=== PATIENT | male | born 1930 | race Caucasian/White ===

== ENCOUNTER 2017-10-22 12:18 | Inpatient (IN) | payer MEDICARE, OTHER ==
[~2017-10-22] VITALS: Ht 182.9 cm; Wt 84.0 kg
[~2017-10-22 12:18] MED LIST: ALBU8.5H8 INH; ASPI-845 PO; ATOR40TA PO; CHOL10002 PO; FLUT16SP26 BOTHNARES; LEVO50TA66 PO; NITR0.4T SL; OMEG1CAP20 PO; SPIIN INH; UBID100C45 PO
[2017-10-22 13:03] LABS: BASOPHILS % (AUTO) 0.2 % (0-1); EOSINOPHILS # (AUTO) 0.1 X10'3 (0-0.9); HEMATOCRIT 41.7 % (42.0-52.0); HEMOGLOBIN 13.9 g/dl (14.0-17.9); LYMPHOCYTES # (AUTO) 0.6 X10'3 (1.1-4.8); LYMPHOCYTES % (AUTO) 3.9 % (21-51); MEAN CORPUSCULAR HEMOGLOBIN 30.3 PG (27.0-31.0); MEAN CORPUSCULAR HGB CONC 33.3 % (33.0-36.5); MEAN CORPUSCULAR VOLUME 91.1 FL (78-98); MEAN PLATELET VOLUME 7.8 FL (7.4-10.4); MONOCYTES # (AUTO) 0.8 X10'3 (0-0.9); MONOCYTES % (AUTO) 5.8 % (2-12); NEUTROPHILS % (AUTO) 89.1 % (42-75); PLATELET COUNT 174 X10'3 (140-440); RED BLOOD COUNT 4.57 X10'6 (4.70-6.10); RED CELL DISTRIBUTION WIDTH 13.8 % (11.5-14.5); WHITE BLOOD COUNT 14.6 X10'3 (4.5-11.0)
[2017-10-22 13:13] LABS: INR 1.1 INR; PARTIAL THROMBOPLASTIN TIME 27 SECONDS (22-32); PROTHROMBIN TIME 11.1 SECONDS (9.0-12.0)
[2017-10-22 13:17] LABS: ALANINE AMINOTRANSFERASE 20 U/L (12-78); ALBUMIN 3.4 G/DL (3.4-5.0); ALBUMIN/GLOBULIN RATIO 0.9 (1.1-1.5); ALKALINE PHOSPHATASE 73 IU/L (46-116); ANION GAP 10 (8-16); ASPARTATE AMINO TRANSFERASE 14 U/L (10-37); BILIRUBIN,TOTAL 0.6 MG/DL (0.1-1.0); BLOOD UREA NITROGEN 16 MG/DL (7-18); BUN/CREATININE RATIO 12.8 (5.4-32.0); CALCIUM 8.6 MG/DL (8.5-10.1); CHLORIDE 102 MMOL/L (99-107); CREATININE 1.25 MG/DL (0.60-1.10); GLUCOSE 117 MG/DL (70-104); MAGNESIUM 1.7 MG/DL (1.5-2.4); SODIUM 137 MMOL/L (135-145); TOTAL CARBON DIOXIDE 25.5 MMOL/L (24-32); TOTAL PROTEIN 7.3 G/DL (6.4-8.2); eGFR 55 ML/MIN
[2017-10-22] MEDS ORDERED: levoFLOXACIN-Levaquin 750MG/D5 150 ML IV ONE (13:50)
[2017-10-22] MEDS ORDERED: normal saline 1000ML IV soln IV ONE (13:50)
[2017-10-22 14:05] LABS: CLARITY,URINE CLEAR (Clear); COLOR,URINE YELLOW (Yellow); GLUCOSE, URINE NEGATIVE (Neg); KETONES,URINE NEGATIVE (Neg); LEUKOCYTE ESTERASE ,URINE NEGATIVE (Neg); NITRITES, URINE NEGATIVE (Neg); OCCULT BLOOD,URINE LARGE (Neg); PH,URINE 5.5 (4.8-8.0); PROTEIN,URINE NEGATIVE (Neg); UROBILINOGEN,URINE 0.2 E.U/dL (0.2-1.0)
[2017-10-22 14:06] LABS: UA COLLECTION TYPE CLN CATCH MIDSTREAM
[2017-10-22 14:31] LABS: MUCUS STRANDS FEW /LPF (Neg)
[2017-10-22 14:32] LABS: COARSE GRANULAR CAST 0-3 /LPF (NEGATIVE); SQUAMOUS EPITHELIAL CELL,UR FEW /LPF (FEW)
[2017-10-22 14:46] LABS: URIC ACID CRYSTALS 3+ /HPF (NEGATIVE)
[2017-10-22 14:50] LABS: BACTERIA,URINE FEW /HPF (Neg); WBC,URINE 0-4 /HPF (0-4)
[2017-10-22] MEDS ORDERED: magnesium hydroxide 30ml (MOM) UD suspension PO PRN (14:50)
[2017-10-22] MEDS ORDERED: HYDROcodone/acetaminophen 5mg/325mg tablet PO PRN (14:50)
[2017-10-22] MEDS ORDERED: morphine sulfate 8 MG/ML SYRINGE IV PRN (14:50)
[2017-10-22] MEDS ORDERED: ondansetron/PF 4mg/2ml inj IV PRN (14:50)
[2017-10-22] MEDS ORDERED: acetaminophen 325mg tablet PO PRN (14:50)
[2017-10-22] MEDS ORDERED: ipratropium/albuterol 3ml nebule NEB PRN (14:50)
[2017-10-22] MEDS ORDERED: mag hydrox/Alum hydrox/simeth 30ml oral suspension PO PRN (14:50)
[2017-10-22] MEDS: ipratropium/albuterol 3ml nebule NEB SCH ×2 (16:58→21:29)
[2017-10-22 20:00] VITALS: BP 114/55
[2017-10-22] MEDS: guaiFENesin ER 600mg tablet PO SCH (20:15)
[2017-10-23] VITALS: BP 100/61
[2017-10-23] MEDS: ipratropium/albuterol 3ml nebule NEB SCH ×4 (03:11→20:06)
[2017-10-23 06:31] LABS: BASOPHILS % (AUTO) 0 % (0-1); EOSINOPHILS # (AUTO) 0.2 X10'3 (0-0.9); EOSINOPHILS % (AUTO) 1.2 % (0-6); HEMATOCRIT 36.9 % (42.0-52.0); HEMOGLOBIN 12.4 g/dl (14.0-17.9); LYMPHOCYTES # (AUTO) 0.8 X10'3 (1.1-4.8); LYMPHOCYTES % (AUTO) 5.3 % (21-51); MEAN CORPUSCULAR HEMOGLOBIN 30.6 PG (27.0-31.0); MEAN CORPUSCULAR HGB CONC 33.7 % (33.0-36.5); MEAN CORPUSCULAR VOLUME 90.8 FL (78-98); MEAN PLATELET VOLUME 8.4 FL (7.4-10.4); MONOCYTES % (AUTO) 6.7 % (2-12); NEUTROPHILS # (AUTO) 12.6 X10'3 (1.8-7.7); NEUTROPHILS % (AUTO) 86.8 % (42-75); PLATELET COUNT 154 X10'3 (140-440); RED BLOOD COUNT 4.07 X10'6 (4.70-6.10); RED CELL DISTRIBUTION WIDTH 13.9 % (11.5-14.5); WHITE BLOOD COUNT 14.5 X10'3 (4.5-11.0)
[2017-10-23 06:38] LABS: ALBUMIN 2.5 G/DL (3.4-5.0); ANION GAP 9 (8-16); BLOOD UREA NITROGEN 16 MG/DL (7-18); BUN/CREATININE RATIO 12.6 (5.4-32.0); CALCIUM 7.9 MG/DL (8.5-10.1); CHLORIDE 105 MMOL/L (99-107); CREATININE 1.27 MG/DL (0.60-1.10); GLUCOSE 94 MG/DL (70-104); POTASSIUM 3.9 MMOL/L (3.5-5.1); SODIUM 138 MMOL/L (135-145); TOTAL CARBON DIOXIDE 24.5 MMOL/L (24-32); eGFR 54 ML/MIN
[2017-10-23 06:56] VITALS: BP 94/53
[2017-10-23] MEDS: OMEGA-3/DHA/EPA/FISH OIL 1 EACH CAPSULE.DR PO SCH (07:48)
[2017-10-23] MEDS: vitamin D (cholecalciferol) 1,000 unit tablet PO SCH (07:48)
[2017-10-23] MEDS: fluticasone nasal spray 16GM bottle NS SCH (07:48)
[2017-10-23] MEDS: guaiFENesin ER 600mg tablet PO SCH ×2 (07:48→19:58)
[2017-10-23] MEDS: levoTHYROXINE 25mcg tablet PO SCH (07:48)
[2017-10-23] MEDS: atorvastatin 10mg tablet PO SCH (07:48)
[2017-10-23] MEDS: aspirin 81mg tablet.DR PO SCH (07:48)
[2017-10-23] MEDS: enoxaparin 40mg/0.4ml syringe SQ SCH (07:49)
[2017-10-23] MEDS: nitroGLYCERIN 0.4mg SUBLingual tab SL SCH (07:49)
[2017-10-23] MEDS ORDERED: non-formulary drug (Ubidecarenone (Co Q-10) 100 MG) PO SCH (08:00)
[2017-10-23] MEDS ORDERED: azithromycin/NS 500mg/250ml 250 ML IV SCH (08:00)
[2017-10-23] MEDS ORDERED: FISH OIL PO SCH (08:00)
[2017-10-23] MEDS ORDERED: FATTY ACIDS PO SCH (08:00)
[2017-10-23] MEDS ORDERED: OMEGA PO SCH (08:00)
[2017-10-23] MEDS ORDERED: ATORVASTATIN CALCIUM 10 MG PO SCH (08:00)
[2017-10-23] MEDS ORDERED: [UNRECOGNIZED DRUG - OTHER] PO SCH (08:00)
[2017-10-23] MEDS ORDERED: non-formulary drug (Cholecalciferol (Vitamin D3) (Vitamin D3) 2 TAB) PO SCH (08:00)
[2017-10-23] MEDS ORDERED: non-formulary drug (Levothyroxine Sodium (Levoxyl) 1 TAB) PO SCH (08:00)
[2017-10-23] MEDS ORDERED: CefTRIAXone 1 gm/50ml D5W ADV 50 ML IV SCH (08:00)
[2017-10-23 12:08] VITALS: BP 104/48
[2017-10-23] MEDS ORDERED: diphenhydrAMINE 50 mg/ml inj IV PRN (12:30)
[2017-10-23] MEDS ORDERED: methylPREDNISolone sod succ 125mg/2ml vial IV ONE (12:30)
[2017-10-23] MEDS ORDERED: levoFLOXACIN-Levaquin 750MG/D5 150 ML IV SCH (14:00)
[2017-10-23] MEDS: budesonide 0.5mg/2ml UD nebule IH SCH ×2 (18:30→20:06)
[2017-10-23 19:00] VITALS: BP 103/54
[2017-10-24] VITALS: BP 98/66
[2017-10-24] MEDS: ipratropium/albuterol 3ml nebule NEB SCH ×2 (02:42→10:03)
[2017-10-24 06:10] LABS: BASOPHILS % (AUTO) 0 % (0-1); EOSINOPHILS # (AUTO) 0.1 X10'3 (0-0.9); EOSINOPHILS % (AUTO) 0.9 % (0-6); HEMATOCRIT 36.9 % (42.0-52.0); HEMOGLOBIN 12.2 g/dl (14.0-17.9); LYMPHOCYTES # (AUTO) 0.4 X10'3 (1.1-4.8); LYMPHOCYTES % (AUTO) 3.2 % (21-51); MEAN CORPUSCULAR HEMOGLOBIN 30.4 PG (27.0-31.0); MEAN CORPUSCULAR HGB CONC 33.1 % (33.0-36.5); MEAN CORPUSCULAR VOLUME 91.9 FL (78-98); MEAN PLATELET VOLUME 8.4 FL (7.4-10.4); MONOCYTES # (AUTO) 0.4 X10'3 (0-0.9); MONOCYTES % (AUTO) 3.3 % (2-12); NEUTROPHILS # (AUTO) 11.3 X10'3 (1.8-7.7); NEUTROPHILS % (AUTO) 92.6 % (42-75); PLATELET COUNT 167 X10'3 (140-440); RED BLOOD COUNT 4.02 X10'6 (4.70-6.10); RED CELL DISTRIBUTION WIDTH 14.1 % (11.5-14.5); WHITE BLOOD COUNT 12.2 X10'3 (4.5-11.0)
[2017-10-24 06:30] VITALS: BP 122/67
[2017-10-24 07:03] LABS: ALBUMIN 2.5 G/DL (3.4-5.0); ANION GAP 8 (8-16); BLOOD UREA NITROGEN 20 MG/DL (7-18); CHLORIDE 104 MMOL/L (99-107); CREATININE 1.25 MG/DL (0.60-1.10); GLUCOSE 142 MG/DL (70-104); POTASSIUM 3.7 MMOL/L (3.5-5.1); SODIUM 138 MMOL/L (135-145); TOTAL CARBON DIOXIDE 25.8 MMOL/L (24-32); eGFR 55 ML/MIN
[2017-10-24] MEDS: vitamin D (cholecalciferol) 1,000 unit tablet PO SCH (07:48)
[2017-10-24] MEDS: OMEGA-3/DHA/EPA/FISH OIL 1 EACH CAPSULE.DR PO SCH (07:48)
[2017-10-24] MEDS: guaiFENesin ER 600mg tablet PO SCH (07:49)
[2017-10-24] MEDS: nitroGLYCERIN 0.4mg SUBLingual tab SL SCH (07:49)
[2017-10-24] MEDS: atorvastatin 10mg tablet PO SCH (07:49)
[2017-10-24] MEDS: enoxaparin 40mg/0.4ml syringe SQ SCH (07:49)
[2017-10-24] MEDS: aspirin 81mg tablet.DR PO SCH (07:49)
[2017-10-24] MEDS: levoTHYROXINE 25mcg tablet PO SCH (07:49)
[2017-10-24] MEDS: fluticasone nasal spray 16GM bottle NS SCH (07:53)
[2017-10-24] MEDS: budesonide 0.5mg/2ml UD nebule IH SCH (08:00)
[2017-10-24 11:30] VITALS: BP 128/62
[2017-10-24] MEDS ORDERED: LACTOSE-FREE FOOD 237ML (BOOST) PO SCH (13:00)
[2017-10-24] MEDS ORDERED: LEVO500T2 PO (15:34)
[2017-10-25] MEDS ORDERED: levoFLOXACIN-Levaquin 750MG/D5 150 ML IV SCH (14:00)
== END 2017-10-24 16:13 | disposition home or self-care (01) | DRG 871 ==
LOC: ER 12:19 → ED HOLD 14:47 → SUR 3N 18:59
PROVIDERS: ADMIT Internal Medicine; ATTEND Legal Medicine
DX: A41.9 Sepsis, unspecified organism (principal); J96.01 Acute respiratory failure with hypoxia; J18.1 Lobar pneumonia, unspecified organism; J44.0 Chronic obstructive pulmonary disease with (acute) lower respiratory infection; J44.1 Chronic obstructive pulmonary disease with (acute) exacerbation; E03.9 Hypothyroidism, unspecified; E78.5 Hyperlipidemia, unspecified; N28.9 Disorder of kidney and ureter, unspecified; Z96.641 Presence of right artificial hip joint; Z88.8 Allergy status to other drugs, medicaments and biological substances; Z79.899 Other long term (current) drug therapy; Z79.82 Long term (current) use of aspirin; Z87.891 Personal history of nicotine dependence; Z82.3 Family history of stroke; Z82.49 Family history of ischemic heart disease and other diseases of the circulatory system
CPT/HCPCS: 36415; 70450; 71010; 80048; 80053; 81001; 83605; 83735; 84145; 84443; 85025; 85610; 85730; 87040; 87070; 93005; 94640; 94760; 96365; 97110; 97116; 97161; 99285; A6212; A6223; J0456; J0696; J1650; J1956; J2930; J7030; J7626

== ENCOUNTER 2018-03-02 12:06 | Day surgery (SDC) | payer MEDICARE, BC ==
[~2018-03-02] VITALS: Ht 177.8 cm; Wt 81.8 kg
[2018-03-02 12:15] VITALS: BP 127/79
[2018-03-02] MEDS ORDERED: MIDAZolam 5mg/5ml vial ONE (12:29)
[2018-03-02] MEDS ORDERED: fentaNYL/PF 50MCG/1 ML 2ML syringe ONE (12:29)
[2018-03-02] MEDS ORDERED: CARV3.122 PO (12:37)
[2018-03-02 13:45] VITALS: BP 122/75
[2018-03-02 13:55] VITALS: BP 116/74
[2018-03-02 14:05] VITALS: BP 128/70
== END 2018-03-02 14:22 | disposition home or self-care (01) ==
LOC: GI LAB 12:06
PROVIDERS: ATTEND Internal Medicine Gastroenterology
DX: K64.8 Other hemorrhoids (principal); E03.9 Hypothyroidism, unspecified; J44.9 Chronic obstructive pulmonary disease, unspecified; M19.90 Unspecified osteoarthritis, unspecified site; Z86.010 Personal history of colon polyps; Z79.82 Long term (current) use of aspirin; Z88.6 Allergy status to analgesic agent; Z88.1 Allergy status to other antibiotic agents; Z95.5 Presence of coronary angioplasty implant and graft; Z87.891 Personal history of nicotine dependence; Z90.89 Acquired absence of other organs; Z72.89 Other problems related to lifestyle; Z85.46 Personal history of malignant neoplasm of prostate; Z79.899 Other long term (current) drug therapy
CPT/HCPCS: 45378; G0500; J2250; J3010; J7030; 99153; A4620

== ENCOUNTER 2020-02-23 08:54 | Day surgery (SDC) | payer BC ==
[2020-02-22 10:48] LABS: BASOPHILS % (AUTO) 0.6 % (0-1); EOSINOPHILS # (AUTO) 0.3 X10'3 (0-0.9); EOSINOPHILS % (AUTO) 5.3 % (0-6); HEMATOCRIT 42.7 % (42.0-52.0); LYMPHOCYTES % (AUTO) 15.4 % (21-51); MEAN CORPUSCULAR HEMOGLOBIN 29.8 PG (27.0-31.0); MEAN CORPUSCULAR HGB CONC 32.7 g/dL (33.0-36.5); MEAN CORPUSCULAR VOLUME 91.1 FL (78-98); MEAN PLATELET VOLUME 7.8 FL (7.4-10.4); MONOCYTES # (AUTO) 0.6 X10'3 (0-0.9); MONOCYTES % (AUTO) 9.7 % (2-12); NEUTROPHILS # (AUTO) 4.5 X10'3 (1.8-7.7); PLATELET COUNT 206 X10'3 (140-440); RED BLOOD COUNT 4.69 X10'6 (4.70-6.10); RED CELL DISTRIBUTION WIDTH 13.7 % (11.5-14.5); WHITE BLOOD COUNT 6.5 X10'3 (4.5-11.0)
[2020-02-22 10:58] LABS: ALBUMIN 3.3 G/DL (3.4-5.0); ANION GAP 3 (8-16); BLOOD UREA NITROGEN 17 MG/DL (7-18); BUN/CREATININE RATIO 14.8 (5.4-32.0); CHLORIDE 106 MMOL/L (99-107); CREATININE 1.15 MG/DL (0.60-1.10); GLUCOSE 87 MG/DL (70-104); POTASSIUM 4.5 MMOL/L (3.5-5.1); SODIUM 140 MMOL/L (135-145); TOTAL CARBON DIOXIDE 30.9 MMOL/L (24-32); eGFR 60 ML/MIN
[2020-02-22 11:01] LABS: PARTIAL THROMBOPLASTIN TIME 27 SECONDS (22-32)
[~2020-02-23] VITALS: Ht 177.8 cm; Wt 81.6 kg
[2020-02-23] VITALS (11 sets, daily range): BP systolic 108–153; BP diastolic 45–66
[~2020-02-23 08:54] MED LIST changes: +CARV3.122 PO
[2020-02-23] MEDS ORDERED: normal saline 1,000 ML IV SCH (09:15)
[2020-02-23] MEDS ORDERED: diphenhydrAMINE 25mg capsule PO PRN (09:15)
[2020-02-23] MEDS ORDERED: LORazepam 0.5 MG tablet PO PRN (09:15)
[2020-02-23] MEDS ORDERED: APIX5TAB3 PO (10:05)
[2020-02-23] MEDS ORDERED: LEVO75TA7 PO (10:05)
[2020-02-23] MEDS ORDERED: CARV6.253 PO (10:05)
[2020-02-23] MEDS ORDERED: verapamil 2.5 mg/ml inj IV ONE (11:40)
[2020-02-23] MEDS ORDERED: midazolam 2 mg/2 ml injection ONE (11:40)
[2020-02-23] MEDS ORDERED: fentaNYL/PF 50MCG/1 ML 2ML syringe ONE (11:40)
[2020-02-23] MEDS ORDERED: nitroGLYCERIN-Tridil 50MG/D5W 250 ML IV ONE (11:40)
[2020-02-23] MEDS ORDERED: heparin 1,000unit/ml 10ml vial 10 ML ONE (11:41)
[2020-02-23] MEDS ORDERED: iohexol 350MG/ML 100ml bottle IV ONE (11:41)
[2020-02-23] MEDS ORDERED: LIDOcaine 1% (10mg/ml)w/preservative injection 20ml MDV ONE (11:41)
[2020-02-23] MEDS ORDERED: iohexol 350 MG/ML 50ML vial IV ONE ×2 (11:41→12:32)
[2020-02-23] MEDS ORDERED: normal saline 1000ml 1,000 ML IV SCH (13:30)
[2020-02-23] MEDS ORDERED: HYDROcodone/acetaminophen 5mg/325mg tablet PO PRN (13:30)
[2020-02-23] MEDS ORDERED: HYDROcodone/acetaminophen 10/325mg tab PO PRN (13:30)
== END 2020-02-23 18:50 | disposition home or self-care (01) ==
LOC: SSTAY O 08:54 → MED 3N 08:56 → SSTAY O 18:50
PROVIDERS: ATTEND Internal Medicine Cardiovascular Disease
DX: R94.39 Abnormal result of other cardiovascular function study (principal); R06.02 Shortness of breath; I25.10 Atherosclerotic heart disease of native coronary artery without angina pectoris; I10 Essential (primary) hypertension; E78.49 Other hyperlipidemia; I48.0 Paroxysmal atrial fibrillation; E03.9 Hypothyroidism, unspecified; Z95.5 Presence of coronary angioplasty implant and graft; Z79.899 Other long term (current) drug therapy; Z79.82 Long term (current) use of aspirin; Z85.46 Personal history of malignant neoplasm of prostate; Z98.41 Cataract extraction status, right eye; Z98.42 Cataract extraction status, left eye; Z96.641 Presence of right artificial hip joint; Z98.890 Other specified postprocedural states; Z87.891 Personal history of nicotine dependence; Z88.5 Allergy status to narcotic agent; Z88.2 Allergy status to sulfonamides; Z88.1 Allergy status to other antibiotic agents
CPT/HCPCS: 36415; 80048; 85025; 85610; 85730; 93005; 93458; 99152; 99153; C1769; C1894; J1644; J2001; J2250; J3010; J7030; Q0163; Q9967; A4620; A6258; C1760; J3490